=== PATIENT | female | born 1995 | race Caucasian/White ===

== ENCOUNTER 2019-08-09 00:33 | Emergency (ER) | payer BC ==
[2019-08-09] MEDS ORDERED: Ondansetron 4 MG Tab.DIS PO ONE (00:34)
[2019-08-09] MEDS ORDERED: Sodium Chloride 0.9% 1,000 ML IV ONE (00:46)
[2019-08-09] MEDS ORDERED: Ondansetron 4 MG/2 ML SDV IVPUSH ONE (00:46)
--- NOTE | 2019-08-09 00:56 | EDM.PDOC ---
ED HPI GENERAL MEDICAL PROBLEM - General Chief Complaint: Gastrointestinal Problem Stated Complaint: POSSIBLE FLU, BEEN THROWING UP COUGHING Time Seen by Provider: 08/09/19 00:56 Source of Information: Reports: Patient, RN, RN Notes Reviewed History Limitations: Reports: No Limitations - History of Present Illness INITIAL COMMENTS - FREE TEXT/NARRATIVE: patient presents to ER with complaint of nausea, vomiting, diarrhea that began at 1600 on Friday, August 07. Patient states prior to that she has had a cold and cough for about a week. Patient states [id number] has had vomiting on Friday , and diarrhea through the weekend. Patient also states her brother has had vomiting and diarrhea. Patient denies use of Imodium for diarrhea. States she feels warm at times but is unsure of fever, denies chills. Patient denies chances of . Denies urinary symptoms. Denies any health problems other than endometriosis. Onset: Today, Sudden - Related Data Allergies Allergy/AdvReac Type Severity Reaction Status Date / Time No Known Allergies Allergy Verified 08/09/19 00:53 Past Medical History [employer] History: Reports: Psychiatric History: Reports: Anxiety - Past Surgical History Female Surgical History: Reports: Section, Endometrial Ablation Social & Family History - Family History Family Medical History: Noncontributory - Tobacco Use Smoking Status *Q: Never Smoker - Caffeine Use Caffeine Use: Reports: Coffee - Alcohol Use Date of Last Drink: 08/08/19 - Recreational Drug Use Recreational Drug Use: No ED ROS GENERAL - Review of Systems Review Of Systems: Comprehensive ROS is negative, except as noted in HPI. ED EXAM, GI/ABD - Physical Exam Exam: See Below Exam Limited By: No Limitations General Appearance: Alert, WD/WN, No Apparent Distress Eyes: Bilateral: Normal Appearance, EOMI Ears: Normal External Exam, Hearing Grossly Normal Nose: Normal Inspection Throat/Mouth: Normal Inspection, Normal Voice, No Airway Compromise Head: Atraumatic, Normocephalic Neck: Normal Inspection, Supple, Non-Tender, Full Range of Motion Respiratory/Chest: No Respiratory Distress, Lungs Clear, Normal Breath Sounds, No Accessory Muscle Use, Chest Non-Tender Cardiovascular: Normal Peripheral Pulses, Regular Rate, Rhythm, No Edema, No Gallop, No JVD, No Murmur, No Rub GI/Abdominal Exam: Normal Bowel Sounds, Soft, Tender (Female) Exam: Deferred Rectal (Female) Exam: Deferred Back Exam: Normal Inspection, Full Range of Motion, NT Extremities: Normal Inspection, Normal Range of Motion, Non-Tender, Normal Capillary Refill, No Pedal Edema Neurological: Alert, Oriented, CN II-XII Intact, Normal Cognition, Normal Gait, Normal Reflexes, No Motor/Sensory Deficits Psychiatric: Normal Affect, Normal Mood Skin Exam: Warm, Dry, Intact, Normal Color, No Rash Lymphatic: No Adenopathy Course - Vital Signs Last Recorded V/S: Last Vital Signs Temp 97.2 F 08/09/19 00:40 Pulse 98 08/09/19 00:40 Resp 17 08/09/19 00:40 BP 123/75 08/09/19 00:40 Pulse Ox 100 08/09/19 00:40 - Orders/Labs/Meds Orders: Active Orders 24 hr Category Date Time Status Sodium Chloride 0.9% [Normal Saline] 1,000 ml Med 08/09/19 00:46 Active IV .BOLUS Medication Orders Sodium Chloride (Normal Saline) 1,000 mls @ 999 mls/hr IV .BOLUS ONE Stop: 08/09/19 01:46 Last Admin: 08/09/19 00:53 Dose: 999 mls/hr Labs: Laboratory Tests 08/09/19 08/09/19 08/09/19 Range/Units 00:47 00:47 00:47 WBC 20.4 H (5.0-10.0) 10^3/uL RBC 5.29 (4.2-5.4) 10^6/uL Hgb 15.8 (12.0-16.0) g/dL Hct 44.9 (37.0-47.0) % MCV 84.9 (80-100) fL MCH 29.9 (27.0-34.0) pg MCHC 35.2 H (33.0-35.0) g/dL Plt Count 378 (150-450) 10^3/uL Neut % (Auto) 93.1 H (42.2-75.2) % Lymph % (Auto) 2.2 L (20.5-50.1) % [place] % (Auto) 3.8 (2-8) % Eos % (Auto) 0.8 L (1.0-3.0) % Baso % (Auto) 0.1 (0.0-1.0) % Sodium 137 (135-145) mmol/L Potassium 3.6 (3.6-5.0) mmol/L Chloride 106 (101-111) mmol/L Carbon Dioxide 21.0 (21.0-31.0) mmol/L Anion Gap 13.6 BUN 16 (7-18) mg/dL Creatinine 0.8 (0.6-1.3) mg/dL Est Cr Clr Drug Dosing 91.24 mL/min Estimated GFR (MDRD) > 60 BUN/Creatinine Ratio 20.00 Glucose 125 H (74-105) mg/dL Lactic Acid 1.0 (0.5-2.0) mmol/L Calcium 8.8 (8.4-10.2) mg/dl Total Bilirubin 0.8 (0.2-1.0) mg/dL AST 22 (10-42) IU/L ALT 28 (10-60) IU/L Alkaline Phosphatase 71 (42-121) IU/L Total Protein 7.5 (6.7-8.2) g/dl Albumin 4.4 (3.2-5.5) g/dl Globulin 3.1 Albumin/Globulin Ratio 1.42 HCG, Qual Negative Meds: Medications Generic Name Dose Route Start Last Admin Trade Name Freq PRN Reason Stop Dose Admin Sodium Chloride 1,000 mls @ 999 mls/hr 08/09/19 00:46 08/09/19 00:53 Normal Saline IV 08/09/19 01:46 999 mls/hr .BOLUS ONE Administration Discontinued Medications Generic Name Dose Route Start Last Admin Trade Name Freq PRN Reason Stop Dose Admin Ondansetron HCl 4 mg 08/09/19 00:46 08/09/19 00:51 Zofran IVPUSH 08/09/19 00:47 4 mg ONETIME ONE Administration Departure - Departure Time of Disposition: 01:37 Disposition: Home, Self-Care 01 Condition: Fair Clinical Impression: Gastroenteritis - Discharge Information *PRESCRIPTION DRUG MONITORING PROGRAM REVIEWED*: No *COPY OF PRESCRIPTION DRUG MONITORING REPORT IN PATIENT SONAL: No Instructions: Viral Gastroenteritis, Adult, [id number], Food Choices to Help Relieve Diarrhea, Adult, Nausea and Vomiting, Adult, [id number], Diarrhea, Adult, [id number] Forms: ED Department Discharge Additional Instructions: small sips of water frequently when not nauseated Rx: Zofran 4 mg ODT every 6-8 hours as needed for nausea May use Imodium [id number] as directed for diarrhea Follow-up with your primary care provider this week if no improvement Sepsis Event Note - Evaluation Sepsis Screening Result: No Definite Risk - Focused Exam Vital Signs: Vital Signs Temp Pulse Resp BP Pulse Ox 08/09/19 00:40 97.2 F 98 17 123/75 100 Date Exam was Performed: 08/09/19 Time Exam was Performed: 01:37 - My Orders Last 24 Hours: My Active Orders 08/09/19 00:46 Sodium Chloride 0.9% [Normal Saline] 1,000 ml IV .BOLUS - Assessment/Plan Last 24 Hours: My Active Orders 08/09/19 00:46 Sodium Chloride 0.9% [Normal Saline] 1,000 ml IV .BOLUS
[2019-08-09 01:16] LABS: ANION GAP 13.6; CHLORIDE,CL 106 mmol/L (101-111); SODIUM,NA 137 mmol/L (135-145)
[2019-08-09] MEDS ORDERED: Ondansetron 4 MG Tab.DIS ONE (01:41)
== END 2019-08-09 01:49 | disposition home or self-care (01) ==
LOC: DL.ED 00:33
DX: K52.9 Noninfective gastroenteritis and colitis, unspecified (principal)
CPT/HCPCS: 36415; 80053; 83605; 84703; 85025; 96361; 96374; 99284; A9270; J2405; J7030